=== PATIENT | female | born 1940 | race Caucasian/White ===

== ENCOUNTER → 2016-04-01 | Outpatient (CLI) | payer MEDICARE, OTHER ==
[~2016-04-01] MED LIST: ALPR0.254 PO; ATENPOW10 PO; LEXAPRO PO; OXYCODONE PO; PHEN50CH4 PO; PLAVIX PO; ROSU10TA16 PO; TRIATAB3 PO
== END | disposition home or self-care (01) ==
LOC: Rad HDHVI 09:54
PROVIDERS: ATTEND Internal Medicine Cardiovascular Disease
DX: G45.8 Other transient cerebral ischemic attacks and related syndromes (principal); Z98.61 Coronary angioplasty status
CPT/HCPCS: 93880

== ENCOUNTER → 2016-08-20 | Outpatient (CLI) | payer MEDICARE, OTHER | END | disposition home or self-care (01) | LOC: Rad HDHVI 07:55 | PROVIDERS: ATTEND Internal Medicine Cardiovascular Disease | DX: I07.1 Rheumatic tricuspid insufficiency (principal); I63.9 Cerebral infarction, unspecified | CPT/HCPCS: 93306 ==

== ENCOUNTER → 2016-08-31 | Outpatient (CLI) | payer MEDICARE, OTHER ==
[~2016-08-31] MED LIST changes: +ADENOSINE 61 MG in GIVE UN-DILUTED 0 ML IV ONE; +ADENOSINE 90 MG/30 ML INJ IV ONE
[2016-08-31 15:51] LABS: Basophils # (auto) 0 uL; Basophils % (auto) 0.5 % (0.0-2.0); CONDITION Y; Eosinophils # (auto) 0.1 uL; Eosinophils % (auto) 1.1 % (0.0-7.0); Hematocrit 47.9 % (36.0-46.0); Hemoglobin 16.2 g/dL (12.2-16.2); Lymphocytes # (auto) 2.3 uL; Lymphocytes % (auto) 21.5 % (10.0-50.0); Mean Corpuscular Hemoglobin 32.3 pg (28.0-32.0); Mean Corpuscular Hgb Conc. 33.9 g/dL (32.0-36.0); Mean Corpuscular Volume 95.4 fL (80.0-100.0); Mean Platelet Volume 8.7 fL (7.4-10.4); Monocytes # (auto) 0.9 uL; Monocytes % (auto) 8.4 % (0.0-12.0); Neutrophils # (auto) 7.3 uL; Neutrophils % (auto) 68.5 % (37.0-80.0); Platelet Count (auto) 311 10^3/uL (140-450); Red Cell Distribution Width 14.1 % (11.6-16.0); White Blood Cell 10.7 10^3/uL (4.4-10.8)
[2016-08-31 16:05] LABS: Albumin 3.7 g/dL (3.4-5.0); Alkaline Phosphatase 93 U/L (45-117); Anion Gap 10 (5-15); Aspartate Aminotransferase 31 U/L (15-37); BUN/Creatinine Ratio 20.2; Bilirubin, Direct < 0.1 mg/dL (0-0.2); Bilirubin, Total 0.3 mg/dL (0.2-1.0); Blood Urea Nitrogen 18 mg/dL (7-18); Calcium 9.2 mg/dL (8.5-10.1); Carbon Dioxide 26 mmol/L (21-32); Chloride 100 mmol/L (98-107); Cholesterol 205 mg/dL (< 200); GFR African American 79 mL/min; GFR Non-African American 65 mL/min; Glucose 127 mg/dL (74-106); HDL Cholesterol 37 mg/dL (40-59); Potassium 3.5 mmol/L (3.5-5.1); Sodium 136 mmol/L (136-145); Total Protein 8.1 g/dL (6.4-8.2); Triglycerides 459 mg/dL (< 150)
== END | disposition home or self-care (01) ==
LOC: Rad HDHVI 08:23
PROVIDERS: ATTEND Internal Medicine Cardiovascular Disease
DX: I10 Essential (primary) hypertension (principal); E78.00 Pure hypercholesterolemia, unspecified; I63.9 Cerebral infarction, unspecified; K74.1 Hepatic sclerosis; E11.9 Type 2 diabetes mellitus without complications; D64.9 Anemia, unspecified; E03.9 Hypothyroidism, unspecified; E78.5 Hyperlipidemia, unspecified; E55.9 Vitamin D deficiency, unspecified; N39.0 Urinary tract infection, site not specified
CPT/HCPCS: 36415; 78452; 80048; 80061; 80076; 82306; 83036; 84443; 85025; 93005; 96374; 96375; A9500; J0153

== ENCOUNTER → 2017-02-03 | Outpatient (CLI) | payer MEDICARE, OTHER ==
[~2017-02-03] MED LIST changes: -ADENOSINE 61 MG in GIVE UN-DILUTED 0 ML IV ONE; -ADENOSINE 90 MG/30 ML INJ IV ONE
== END | disposition home or self-care (01) ==
LOC: Rad HDHVI 10:21
PROVIDERS: ATTEND Internal Medicine Cardiovascular Disease
DX: I67.2 Cerebral atherosclerosis (principal); G31.9 Degenerative disease of nervous system, unspecified; G40.89 Other seizures; Z86.73 Personal history of transient ischemic attack (TIA), and cerebral infarction without residual deficits
CPT/HCPCS: 36415; 70450; 80185

== ENCOUNTER → 2017-02-10 | Outpatient (CLI) | payer MEDICARE, OTHER ==
[~2017-02-10] MED LIST changes: +ATEN-60 PO
== END | disposition home or self-care (01) ==
LOC: Rad HDHVI 11:15
PROVIDERS: ATTEND Internal Medicine Cardiovascular Disease
DX: I65.21 Occlusion and stenosis of right carotid artery (principal)
CPT/HCPCS: 93880

== ENCOUNTER → 2017-05-31 | Outpatient (CLI) | payer MEDICARE, OTHER ==
[~2017-05-31] VITALS: Ht 1 cm; Wt 0.5 kg
[~2017-05-31] MED LIST changes: +SODIUM CHLORIDE 0.9% 1,000 ML IV SCH; +SODIUM CHLORIDE 0.9% 500 ML IV SCH
[2017-05-31 12:57] LABS: Basophils # (auto) 0 uL; Basophils % (auto) 0.4 % (0.0-2.0); Eosinophils # (auto) 0.1 uL; Eosinophils % (auto) 0.8 % (0.0-7.0); Hematocrit 47.4 % (36.0-46.0); Hemoglobin 15.9 g/dL (12.2-16.2); Lymphocytes # (auto) 3.6 uL; Lymphocytes % (auto) 29.8 % (10.0-50.0); Mean Corpuscular Hemoglobin 31.7 pg (28.0-32.0); Mean Corpuscular Hgb Conc. 33.6 g/dL (32.0-36.0); Mean Corpuscular Volume 94.3 fL (80.0-100.0); Monocytes # (auto) 1.2 uL; Monocytes % (auto) 9.9 % (0.0-12.0); Neutrophils # (auto) 7.1 uL; Neutrophils % (auto) 59.1 % (37.0-80.0); Nucleated Red Blood Cells % 0.1 %; Platelet Count (auto) 290 10^3/uL (140-450); Red Blood Cells 5.03 10^6/uL (4.0-5.20); Red Cell Distribution Width 13.7 % (11.8-14.3)
[2017-05-31 13:00] LABS: BUN/Creatinine Ratio 18.6; Calcium 9.5 mg/dL (8.5-10.1); Potassium 3.5 mmol/L (3.5-5.1)
[2017-05-31 15:42] VITALS: BP 134/63
== END | disposition home or self-care (01) ==
LOC: Rad HDHVI 10:55
PROVIDERS: ATTEND Internal Medicine Cardiovascular Disease
DX: D64.9 Anemia, unspecified (principal); I10 Essential (primary) hypertension; N39.0 Urinary tract infection, site not specified; I63.511 Cerebral infarction due to unspecified occlusion or stenosis of right middle cerebral artery; G45.9 Transient cerebral ischemic attack, unspecified
CPT/HCPCS: 36415; 70450; 80048; 85025; 87086; 96360; 96361; G0463; J1642; J7030; 96374

== ENCOUNTER → 2017-08-18 | Outpatient (CLI) | payer MEDICARE, OTHER ==
[~2017-08-18] MED LIST changes: -ATENPOW10 PO; +ESCI20TA51 PO; +ROSU1TAB5 PO; -SODIUM CHLORIDE 0.9% 1,000 ML IV SCH; -SODIUM CHLORIDE 0.9% 500 ML IV SCH
[2017-08-18 12:26] LABS: Urine Amorphous Crystal MANY /hpf (None Seen); Urine Bacteria MANY /hpf (None Seen); Urine Blood 3+ /uL (Negative); Urine Specific Gravity 1.015 (1.001-1.035); Urine WBC 1068 /hpf (0 - 5); Urine WBC Clumps PRESENT /hpf (None Seen)
== END | disposition home or self-care (01) ==
LOC: LAB 07:51
PROVIDERS: ATTEND Internal Medicine Cardiovascular Disease
DX: N39.0 Urinary tract infection, site not specified (principal); I10 Essential (primary) hypertension; K21.9 Gastro-esophageal reflux disease without esophagitis
CPT/HCPCS: 81001; 87086

== ENCOUNTER → 2017-08-20 | Outpatient (CLI) | payer MEDICARE, BC ==
[2017-08-20 16:08] LABS: Urine Bacteria NONE SEEN /hpf (None Seen); Urine Blood 3+ /uL (Negative); Urine Mucus FEW (None Seen); Urine Specific Gravity 1.018 (1.001-1.035); Urine WBC 1429 /hpf (0 - 5); Urine WBC Clumps PRESENT /hpf (None Seen)
== END | disposition home or self-care (01) ==
LOC: LAB 13:01
PROVIDERS: ATTEND Internal Medicine Cardiovascular Disease
DX: N39.0 Urinary tract infection, site not specified (principal); I10 Essential (primary) hypertension; E78.5 Hyperlipidemia, unspecified; E03.9 Hypothyroidism, unspecified
CPT/HCPCS: 81001; 87086; 87088; 87186

== ENCOUNTER 2017-08-23 07:58 | Inpatient (IN) | payer MEDICARE, OTHER ==
[~2017-08-23] VITALS: Ht 162.6 cm; Wt 70.7 kg
[~2017-08-23 07:58] MED LIST changes: -ESCI20TA51 PO; -ROSU1TAB5 PO
[2017-08-23 09:45] LABS: Basophils # (auto) 0.1 uL; Basophils % (auto) 1.1 % (0.0-2.0); Eosinophils # (auto) 0.1 uL; Eosinophils % (auto) 1.2 % (0.0-7.0); Hematocrit 47.3 % (36.0-46.0); Hemoglobin 16.1 g/dL (12.2-16.2); Lymphocytes # (auto) 2.9 uL; Lymphocytes % (auto) 24.5 % (10.0-50.0); Mean Corpuscular Hemoglobin 31.4 pg (28.0-32.0); Mean Corpuscular Hgb Conc. 33.9 g/dL (32.0-36.0); Mean Corpuscular Volume 92.4 fL (80.0-100.0); Monocytes % (auto) 8.4 % (0.0-12.0); Neutrophils # (auto) 7.7 uL; Neutrophils % (auto) 64.8 % (37.0-80.0); Platelet Count (auto) 324 10^3/uL (140-450); Red Blood Cells 5.12 10^6/uL (4.0-5.20); White Blood Cell 11.9 10^3/uL (4.4-10.8)
[2017-08-23 09:57] LABS: INR 0.99 (0.9-1.15); Partial Thromboplastin Time 28.2 sec (23.78-33.04); Prothrombin Time 10.6 sec (9.27-12.13)
[2017-08-23 10:10] LABS: Alanine Aminotransferase 23 U/L (13-56); Albumin 3.5 g/dL (3.4-5.0); Alkaline Phosphatase 105 U/L (45-117); Anion Gap 10 (5-15); Aspartate Aminotransferase 35 U/L (15-37); BUN/Creatinine Ratio 17.3; Bilirubin, Total 0.3 mg/dL (0.2-1.0); Blood Urea Nitrogen 19 mg/dL (7-18); Carbon Dioxide 26 mmol/L (21-32); Chloride 100 mmol/L (98-107); GFR African American 62 mL/min; GFR Non-African American 51 mL/min; Glucose 114 mg/dL (74-106); Sodium 136 mmol/L (136-145)
[2017-08-23 10:12] LABS: Potassium 4.6 mmol/L (3.5-5.1)
[2017-08-23 10:18] LABS: Urine Bacteria NONE SEEN /hpf (None Seen); Urine Blood 3+ /uL (Negative); Urine Specific Gravity 1.019 (1.001-1.035); Urine WBC 2523 /hpf (0 - 5)
[2017-08-23] MEDS ORDERED: LEVOFLOXACIN 500MG 100 ML IV ONE (12:00)
[2017-08-23] MEDS ORDERED: MORPHINE SULF(PF) 0.5MG/ML 10ML VIAL IV PRN (13:45)
[2017-08-23] MEDS ORDERED: NITROGLYCERIN 0.4 MG SL TAB SL PRN (13:45)
[2017-08-23] MEDS: SOD CHL 0.45% 1,000 ML IV SCH (14:17)
[2017-08-23] MEDS ORDERED: ESCI20TA51 PO (18:42)
[2017-08-23] MEDS ORDERED: ROSU1TAB5 PO (18:42)
[2017-08-23 19:53] VITALS: BP 110/53
[2017-08-23] MEDS ORDERED: KETOROLAC TROMETH 30 MG/ML 1ML VIAL IV PRN (21:15)
[2017-08-23 21:40] VITALS: BP 110/53
[2017-08-23] MEDS: PHENYTOIN SODIUM 100 MG CAP PO SCH (22:06)
[2017-08-24 05:27] VITALS: BP 131/58
[2017-08-24 06:04] LABS: Albumin 3.3 g/dL (3.4-5.0); BUN/Creatinine Ratio 20.9; Bilirubin, Total 0.3 mg/dL (0.2-1.0); Calcium 9.3 mg/dL (8.5-10.1); Potassium 3.6 mmol/L (3.5-5.1); Total Protein 7.7 g/dL (6.4-8.2)
[2017-08-24] MEDS: CLOPIDOGREL BISULFATE 75 MG TAB PO SCH (09:22)
[2017-08-24] MEDS: TRIAMTERENE/HCTZ 37.5/25 MG CAP PO SCH (09:22)
[2017-08-24] MEDS: ALPRAZolam 0.25 MG TAB PO SCH (09:22)
[2017-08-24] MEDS: PHENYTOIN SODIUM 100 MG CAP PO SCH (09:22)
[2017-08-24] MEDS: ATENOLOL 25 MG TAB PO SCH (09:22)
[2017-08-24] MEDS: CRESTOR 10MG TABLET PO SCH (09:23)
[2017-08-24] MEDS: SOD CHL 0.45% 1,000 ML IV SCH (09:23)
[2017-08-24] MEDS: ESCITALOPRAM 20MG TABLET PO SCH (09:23)
[2017-08-24] MEDS: LEVOFLOXACIN 500MG 100 ML IV SCH (09:25)
[2017-08-24 09:39] VITALS: BP 118/77
[2017-08-24 13:08] VITALS: BP 137/68
[2017-08-24 17:11] VITALS: BP 106/64
[2017-08-24 21:13] VITALS: BP 122/61
[2017-08-25 05:24] VITALS: BP 131/42
[2017-08-25] MEDS: SOD CHL 0.45% 1,000 ML IV SCH (05:58)
[2017-08-25 06:04] LABS: Basophils # (auto) 0 uL; Basophils % (auto) 0.2 % (0.0-2.0); Eosinophils # (auto) 0.1 uL; Eosinophils % (auto) 0.6 % (0.0-7.0); Hematocrit 46.8 % (36.0-46.0); Hemoglobin 16.1 g/dL (12.2-16.2); Lymphocytes % (auto) 25.5 % (10.0-50.0); Mean Corpuscular Hemoglobin 32.2 pg (28.0-32.0); Mean Corpuscular Hgb Conc. 34.4 g/dL (32.0-36.0); Mean Corpuscular Volume 93.5 fL (80.0-100.0); Monocytes # (auto) 1.3 uL; Monocytes % (auto) 11.5 % (0.0-12.0); Neutrophils # (auto) 7.3 uL; Neutrophils % (auto) 62.2 % (37.0-80.0); Nucleated Red Blood Cells % 0.2 %; Platelet Count (auto) 298 10^3/uL (140-450); Red Blood Cells 5.01 10^6/uL (4.0-5.20); Red Cell Distribution Width 14.1 % (11.8-14.3); White Blood Cell 11.8 10^3/uL (4.4-10.8)
[2017-08-25 06:19] LABS: Potassium 4.1 mmol/L (3.5-5.1)
[2017-08-25 06:30] LABS: Albumin 3.3 g/dL (3.4-5.0); BUN/Creatinine Ratio 16.2; Bilirubin, Total 0.4 mg/dL (0.2-1.0); Calcium 9.1 mg/dL (8.5-10.1); Total Protein 8.2 g/dL (6.4-8.2)
[2017-08-25 08:25] VITALS: BP 110/58
[2017-08-25] MEDS: TRIAMTERENE/HCTZ 37.5/25 MG CAP PO SCH (09:30)
[2017-08-25] MEDS: ATENOLOL 25 MG TAB PO SCH (09:31)
[2017-08-25] MEDS: ESCITALOPRAM 20MG TABLET PO SCH (10:00)
[2017-08-25] MEDS: CRESTOR 10MG TABLET PO SCH (10:00)
[2017-08-25] MEDS: LEVOFLOXACIN 500MG 100 ML IV SCH (10:31)
[2017-08-25] MEDS: CLOPIDOGREL BISULFATE 75 MG TAB PO SCH (10:32)
[2017-08-25] MEDS: ALPRAZolam 0.25 MG TAB PO SCH (10:32)
[2017-08-25] MEDS: PHENYTOIN SODIUM 100 MG CAP PO SCH (10:32)
[2017-08-25] MEDS: KETOROLAC TROMETH 30 MG/ML 1ML VIAL IV PRN ×2 (11:31→21:36)
[2017-08-25 12:41] VITALS: BP 117/59
[2017-08-25 17:03] VITALS: BP 107/46
[2017-08-25 21:47] VITALS: BP 96/58
[2017-08-26] MEDS: SOD CHL 0.45% 1,000 ML IV SCH ×2 (02:38→22:30)
[2017-08-26 05:02] VITALS: BP 153/67
[2017-08-26 05:42] LABS: Basophils # (auto) 0 uL; Basophils % (auto) 0.4 % (0.0-2.0); Eosinophils # (auto) 0.2 uL; Eosinophils % (auto) 1.6 % (0.0-7.0); Hematocrit 43.1 % (36.0-46.0); Hemoglobin 14.9 g/dL (12.2-16.2); Lymphocytes # (auto) 3.2 uL; Lymphocytes % (auto) 31.3 % (10.0-50.0); Mean Corpuscular Hemoglobin 32.6 pg (28.0-32.0); Mean Corpuscular Hgb Conc. 34.7 g/dL (32.0-36.0); Monocytes % (auto) 9.6 % (0.0-12.0); Neutrophils # (auto) 5.8 uL; Neutrophils % (auto) 57.1 % (37.0-80.0); Platelet Count (auto) 260 10^3/uL (140-450); Red Blood Cells 4.58 10^6/uL (4.0-5.20); Red Cell Distribution Width 14.1 % (11.8-14.3); White Blood Cell 10.1 10^3/uL (4.4-10.8)
[2017-08-26] MEDS: KETOROLAC TROMETH 30 MG/ML 1ML VIAL IV PRN (06:03)
[2017-08-26 06:12] LABS: Chloride 106 mmol/L (98-107); Potassium 3.5 mmol/L (3.5-5.1); Sodium 141 mmol/L (136-145)
[2017-08-26 06:21] LABS: Alanine Aminotransferase 22 U/L (13-56); Alkaline Phosphatase 84 U/L (45-117); Anion Gap 13 (5-15); Aspartate Aminotransferase 25 U/L (15-37); BUN/Creatinine Ratio 28.4; Bilirubin, Total 0.3 mg/dL (0.2-1.0); Blood Urea Nitrogen 27 mg/dL (7-18); Calcium 8.8 mg/dL (8.5-10.1); Carbon Dioxide 22 mmol/L (21-32); GFR African American 73 mL/min; GFR Non-African American 60 mL/min; Glucose 106 mg/dL (74-106); Total Protein 7.4 g/dL (6.4-8.2)
[2017-08-26 09:00] VITALS: BP 118/66
[2017-08-26] MEDS: ATENOLOL 25 MG TAB PO SCH (10:00)
[2017-08-26] MEDS: CRESTOR 10MG TABLET PO SCH ×2 (10:02→13:36)
[2017-08-26] MEDS: LEVOFLOXACIN 500MG 100 ML IV SCH (10:02)
[2017-08-26] MEDS: CLOPIDOGREL BISULFATE 75 MG TAB PO SCH (10:03)
[2017-08-26] MEDS: TRIAMTERENE/HCTZ 37.5/25 MG CAP PO SCH (10:03)
[2017-08-26] MEDS: ESCITALOPRAM 20MG TABLET PO SCH ×2 (10:03→13:36)
[2017-08-26] MEDS: PHENYTOIN SODIUM 100 MG CAP PO SCH (10:03)
[2017-08-26] MEDS: ALPRAZolam 0.25 MG TAB PO SCH (10:04)
[2017-08-26 13:00] VITALS: BP 103/49
[2017-08-26 17:00] VITALS: BP 106/50
[2017-08-26 20:00] VITALS: BP 120/57
[2017-08-26 22:00] VITALS: BP 120/57
[2017-08-27 05:00] VITALS: BP 152/94
[2017-08-27 07:47] VITALS: BP 123/63
[2017-08-27 08:00] VITALS: BP 123/63
[2017-08-27] MEDS: LEVOFLOXACIN 500MG 100 ML IV SCH (10:04)
[2017-08-27] MEDS: TRIAMTERENE/HCTZ 37.5/25 MG CAP PO SCH (10:05)
[2017-08-27] MEDS: CLOPIDOGREL BISULFATE 75 MG TAB PO SCH (10:05)
[2017-08-27] MEDS: ATENOLOL 25 MG TAB PO SCH (10:05)
[2017-08-27] MEDS: PHENYTOIN SODIUM 100 MG CAP PO SCH (10:05)
[2017-08-27] MEDS: ESCITALOPRAM 20MG TABLET PO SCH (10:06)
[2017-08-27] MEDS: CRESTOR 10MG TABLET PO SCH (10:06)
[2017-08-27] MEDS ORDERED: ALPRAZolam 0.25 MG TAB PO SCH (10:30)
[2017-08-27 12:00] VITALS: BP 119/57
[2017-08-27 15:15] VITALS: BP 119/57
[2017-08-27 16:30] VITALS: BP 122/56
[2017-08-27] MEDS: SOD CHL 0.45% 1,000 ML IV SCH (18:30)
[2017-08-27] MEDS: KETOROLAC TROMETH 30 MG/ML 1ML VIAL IV PRN (20:01)
== END 2017-08-27 21:30 | DRG 871 ==
LOC: ER 07:58 → TELE 07:59 → TELE-CENTR 19:53
PROVIDERS: ADMIT Internal Medicine; ATTEND Internal Medicine
DX: A41.9 Sepsis, unspecified organism (principal); G93.41 Metabolic encephalopathy; N39.0 Urinary tract infection, site not specified; I69.354 Hemiplegia and hemiparesis following cerebral infarction affecting left non-dominant side; I10 Essential (primary) hypertension; E78.5 Hyperlipidemia, unspecified; E86.0 Dehydration; G40.909 Epilepsy, unspecified, not intractable, without status epilepticus; Z90.710 Acquired absence of both cervix and uterus; Z88.0 Allergy status to penicillin; Z86.73 Personal history of transient ischemic attack (TIA), and cerebral infarction without residual deficits
CPT/HCPCS: 36415; 51702; 70450; 71045; 80053; 81001; 82962; 84484; 85025; 85610; 85730; 87086; 87088; 87186; 93005; 96361; 96365; 97163; J1885; J1956

== ENCOUNTER → 2017-12-09 | Outpatient (CLI) | payer MEDICARE, OTHER ==
[~2017-12-09] MED LIST changes: +ESCI20TA51 PO; -LEXAPRO PO; -OXYCODONE PO; -ROSU10TA16 PO; +ROSU1TAB9 PO
[2017-12-09 16:43] LABS: Urine Blood TRACE /uL (Negative); Urine Specific Gravity 1.016 (1.001-1.035)
== END | disposition home or self-care (01) ==
LOC: LAB 13:07
PROVIDERS: ATTEND Internal Medicine Cardiovascular Disease
DX: N39.0 Urinary tract infection, site not specified (principal)
CPT/HCPCS: 81003; 87086

== ENCOUNTER → 2017-12-20 | Outpatient (CLI) | payer MEDICARE, BC ==
[~2017-12-20] VITALS: Ht 162.6 cm; Wt 63.5 kg
[~2017-12-20] MED LIST changes: +ADENOSINE 53 MG in GIVE UN-DILUTED 0 ML IV ONE; +ADENOSINE 90 MG/30 ML INJ IV ONE
== END | disposition home or self-care (01) ==
LOC: Rad HDHVI 13:45
PROVIDERS: ATTEND Internal Medicine Cardiovascular Disease
DX: I63.9 Cerebral infarction, unspecified (principal); N12 Tubulo-interstitial nephritis, not specified as acute or chronic; E78.00 Pure hypercholesterolemia, unspecified
CPT/HCPCS: 78452; 93005; 96374; 96375; A9500; J0153

== ENCOUNTER 2018-01-23 10:26 | Emergency (ER) | payer MEDICARE, OTHER ==
[~2018-01-23] VITALS: Ht 154.9 cm; Wt 59.0 kg
[~2018-01-23 10:26] MED LIST changes: -ADENOSINE 53 MG in GIVE UN-DILUTED 0 ML IV ONE; -ADENOSINE 90 MG/30 ML INJ IV ONE
[2018-01-23] MEDS ORDERED: SODIUM CHLORIDE 0.9% 1,000 ML IV ONE (11:41)
[2018-01-23 11:45] LABS: Basophils # (auto) 0.1 uL; Basophils % (auto) 0.4 % (0.0-2.0); Eosinophils # (auto) 0.1 uL; Eosinophils % (auto) 0.4 % (0.0-7.0); Hematocrit 47.5 % (36.0-46.0); Lymphocytes # (auto) 1.3 uL; Lymphocytes % (auto) 10.1 % (10.0-50.0); Mean Corpuscular Hemoglobin 31.6 pg (28.0-32.0); Mean Corpuscular Hgb Conc. 33.6 g/dL (32.0-36.0); Monocytes # (auto) 1.3 uL; Monocytes % (auto) 10.4 % (0.0-12.0); Neutrophils # (auto) 10.1 uL; Neutrophils % (auto) 78.7 % (37.0-80.0); Platelet Count (auto) 253 10^3/uL (140-450); Red Blood Cells 5.05 10^6/uL (4.0-5.20); Red Cell Distribution Width 14.4 % (11.8-14.3); White Blood Cell 12.8 10^3/uL (4.4-10.8)
[2018-01-23] MEDS ORDERED: MORPHINE SULFATE 4 MG/ML SYR/VIAL IV ONE (11:45)
[2018-01-23] MEDS ORDERED: PROMETHAZINE HCL 25 MG/ML 1ML IV PRN (11:45)
[2018-01-23 12:17] LABS: Anion Gap 10 (5-15); Blood Urea Nitrogen 21 mg/dL (7-18); Carbon Dioxide 26 mmol/L (21-32); Chloride 103 mmol/L (98-107); Glucose 130 mg/dL (74-106); Potassium 3.2 mmol/L (3.5-5.1); Sodium 139 mmol/L (136-145)
[2018-01-23 12:18] LABS: Alanine Aminotransferase 20 U/L (13-56); Albumin 3.3 g/dL (3.4-5.0); Alkaline Phosphatase 97 U/L (45-117); Aspartate Aminotransferase 20 U/L (15-37); BUN/Creatinine Ratio 21.9; Bilirubin, Total 0.2 mg/dL (0.2-1.0); GFR African American 72 mL/min; GFR Non-African American 59 mL/min; Total Protein 8.2 g/dL (6.4-8.2)
[2018-01-23 17:12] VITALS: BP 132/69
[2018-01-23 18:08] LABS: Urine Bacteria NONE SEEN /hpf (None Seen); Urine Blood 2+ /uL (Negative); Urine Hyaline Cast FEW /lpf (0 - 2); Urine Mucus FEW (None Seen); Urine Specific Gravity 1.022 (1.001-1.035); Urine WBC 4 /hpf (0 - 5)
[2018-01-23] MEDS ORDERED: POTASSIUM EFFERVESENT TAB 25 MEQ PO ONE (18:30)
== END 2018-01-23 18:55 | disposition home or self-care (01) ==
LOC: EDBD 10:26 → ER 10:28
DX: K52.9 Noninfective gastroenteritis and colitis, unspecified (principal); K90.49 Malabsorption due to intolerance, not elsewhere classified; E87.6 Hypokalemia; G81.94 Hemiplegia, unspecified affecting left nondominant side; Z88.0 Allergy status to penicillin; Z79.02 Long term (current) use of antithrombotics/antiplatelets; Z79.899 Other long term (current) drug therapy; Z86.73 Personal history of transient ischemic attack (TIA), and cerebral infarction without residual deficits; Z90.49 Acquired absence of other specified parts of digestive tract; Z90.710 Acquired absence of both cervix and uterus
CPT/HCPCS: 36415; 71045; 74176; 80053; 80185; 81001; 83690; 83735; 85025; 93005; 94761; 96361; 96374; 96375; 99285; J2270; J2550; J7030

== ENCOUNTER → 2018-09-30 | Outpatient (CLI) | payer MEDICARE, BC ==
[~2018-09-30] MED LIST changes: +ROSU1TAB13 PO; -ROSU1TAB9 PO
[2018-09-30 12:26] LABS: Basophils # (auto) 0.1 uL; Basophils % (auto) 0.6 % (0.0-2.0); Eosinophils # (auto) 0.1 uL; Eosinophils % (auto) 1.1 % (0.0-7.0); Hematocrit 47.4 % (36.0-46.0); Hemoglobin 16.1 g/dL (12.2-16.2); Lymphocytes # (auto) 2.6 uL; Lymphocytes % (auto) 26.4 % (10.0-50.0); Mean Corpuscular Hemoglobin 32.7 pg (28.0-32.0); Mean Corpuscular Volume 96.2 fL (80.0-100.0); Monocytes # (auto) 0.8 uL; Monocytes % (auto) 8.1 % (0.0-12.0); Neutrophils # (auto) 6.2 uL; Neutrophils % (auto) 63.8 % (37.0-80.0); Nucleated Red Blood Cells % 0.2 %; Platelet Count (auto) 269 10^3/uL (140-450); Red Blood Cells 4.93 10^6/uL (4.0-5.20); Red Cell Distribution Width 14.3 % (11.8-14.3); White Blood Cell 9.8 10^3/uL (4.4-10.8)
[2018-09-30 12:40] LABS: Chloride 102 mmol/L (98-107); Potassium 3.5 mmol/L (3.5-5.1); Sodium 140 mmol/L (136-145)
[2018-09-30 12:58] LABS: Alanine Aminotransferase 26 U/L (13-56); Albumin 3.5 g/dL (3.4-5.0); Alkaline Phosphatase 97 U/L (45-117); Anion Gap 10 (5-15); Aspartate Aminotransferase 15 U/L (15-37); BUN/Creatinine Ratio 15.1; Bilirubin, Total 0.2 mg/dL (0.2-1.0); Blood Urea Nitrogen 16 mg/dL (7-18); Carbon Dioxide 28 mmol/L (21-32); Cholesterol 202 mg/dL (< 200); GFR African American 64 mL/min; GFR Non-African American 53 mL/min; Glucose 147 mg/dL (74-106); HDL Cholesterol 37 mg/dL (40-59); Total Protein 8.2 g/dL (6.4-8.2); Triglycerides 649 mg/dL (< 150)
[2018-09-30 13:26] LABS: Free T4 (Free Thyroxine) 0.89 ng/dL (0.89-1.76)
== END | disposition home or self-care (01) ==
LOC: LAB 08:57
PROVIDERS: ATTEND Internal Medicine Cardiovascular Disease
DX: E03.9 Hypothyroidism, unspecified (principal); D51.9 Vitamin B12 deficiency anemia, unspecified; K90.9 Intestinal malabsorption, unspecified; Z79.899 Other long term (current) drug therapy
CPT/HCPCS: 36415; 80053; 80061; 82306; 82607; 83036; 84439; 84443; 85025

== ENCOUNTER → 2018-10-04 | Outpatient (CLI) | payer MEDICARE, BC ==
[2018-10-04 12:02] LABS: Urine Blood 1+ /uL (Negative); Urine Specific Gravity 1.017 (1.001-1.035)
== END | disposition home or self-care (01) ==
LOC: LAB 09:05
PROVIDERS: ATTEND Internal Medicine Cardiovascular Disease
DX: N39.0 Urinary tract infection, site not specified (principal)
CPT/HCPCS: 81003; 87086

== ENCOUNTER → 2019-01-30 | Outpatient (CLI) | payer MEDICARE, BC ==
[2019-01-31 12:02] LABS: Urine Blood TRACE /uL (Negative); Urine Specific Gravity 1.017 (1.001-1.035)
== END | disposition home or self-care (01) ==
LOC: LAB 15:32
PROVIDERS: ATTEND Internal Medicine Cardiovascular Disease
DX: N39.0 Urinary tract infection, site not specified (principal)
CPT/HCPCS: 81003

== ENCOUNTER → 2019-02-06 | Outpatient (CLI) | payer MEDICARE, BC ==
[~2019-02-06] VITALS: Ht 162.6 cm; Wt 66.7 kg
[~2019-02-06] MED LIST changes: +GENTAMICIN SULF 80 MG/2 ML VIAL ONE; +GENTAMICIN SULFATE 240 MG in D5W 5% 100 ML IV ONE; +PHE100C PO
[2019-02-06 15:45] VITALS: BP 131/58
--- NOTE | 2019-02-06 15:45 | NUR ---
CHF PT ARRIVED AT THE CHF CLINIC FROM THE BACK OFFICE FOR TX AND EVAL. ANTIBIOTICS ORDERED VSS
--- NOTE | 2019-02-06 16:10 | NUR ---
IV insertion IV access obtained, via clean sterile technique by inserting 22 gauge catheter at after attempt(s). IV secured properly. No trauma to site. Patient tolerated procedure well.
[2019-02-06 16:29] LABS: Urine Blood 1+ /uL (Negative); Urine Specific Gravity 1.011 (1.001-1.035)
--- NOTE | 2019-02-06 17:05 | NUR ---
Discharge Instructions See e-MAR for any mediations given with this visit. Patient education given on disease process. Patient verbalized understanding. Previous labs reviewed. Patient discharged in stable condition with after care instructions and follow up appointment. MEDICATIONS GENTAMYCIN IV [phone]
--- NOTE | 2019-02-06 17:19 | NUR ---
IV removal IV DC'd with sterile technique, catheter fully intact. Pressure dressing applied to site. Patient tolerated procedure well. Discharged with aftercare instructions per MD. NOTE:
[2019-02-06 17:22] VITALS: BP 129/54
== END | disposition home or self-care (01) ==
LOC: LAB 15:20
PROVIDERS: ATTEND Internal Medicine Cardiovascular Disease
DX: R78.81 Bacteremia (principal); N39.0 Urinary tract infection, site not specified; G40.89 Other seizures
CPT/HCPCS: 36415; 80185; 81003; 87086; 96365; G0463; J1580; J7060

== ENCOUNTER → 2019-02-27 | Outpatient (CLI) | payer MEDICARE, BC ==
[~2019-02-27] MED LIST changes: -GENTAMICIN SULF 80 MG/2 ML VIAL ONE; -GENTAMICIN SULFATE 240 MG in D5W 5% 100 ML IV ONE; -PHE100C PO
[2019-02-27 15:58] LABS: Urine Blood 1+ /uL (Negative); Urine Specific Gravity 1.018 (1.001-1.035)
== END | disposition home or self-care (01) ==
LOC: LAB 13:39
PROVIDERS: ATTEND Internal Medicine Cardiovascular Disease
DX: N39.0 Urinary tract infection, site not specified (principal)
CPT/HCPCS: 81003; 87086; 87088; 87186

== ENCOUNTER 2019-03-13 09:43 | Inpatient (IN) | payer MEDICARE, BC ==
[~2019-03-13] VITALS: Ht 167.6 cm; Wt 68.0 kg
[2019-03-13] MEDS ORDERED: SODIUM CHLORIDE 0.9% 1,000 ML IV ONE ×2 (10:06)
[2019-03-13 10:18] LABS: Basophils # (auto) 0.1 uL; Basophils % (auto) 0.9 % (0.0-2.0); Eosinophils # (auto) 0.1 uL; Eosinophils % (auto) 1.1 % (0.0-7.0); Hematocrit 41.2 % (36.0-46.0); Hemoglobin 14.3 g/dL (12.2-16.2); Lymphocytes % (auto) 21.5 % (10.0-50.0); Mean Corpuscular Hemoglobin 32.9 pg (28.0-32.0); Mean Corpuscular Hgb Conc. 34.8 g/dL (32.0-36.0); Mean Corpuscular Volume 94.6 fL (80.0-100.0); Monocytes # (auto) 0.8 uL; Monocytes % (auto) 8.4 % (0.0-12.0); Neutrophils # (auto) 6.4 uL; Neutrophils % (auto) 68.1 % (37.0-80.0); Platelet Count (auto) 256 10^3/uL (140-450); Red Blood Cells 4.35 10^6/uL (4.0-5.20); Red Cell Distribution Width 14.2 % (11.8-14.3); White Blood Cell 9.3 10^3/uL (4.4-10.8)
[2019-03-13 10:37] LABS: INR 1.02 (0.9-1.15); Partial Thromboplastin Time 24.5 sec (23.64-32.05)
[2019-03-13 10:38] LABS: Albumin 3.2 g/dL (3.4-5.0); Anion Gap 7 (5-15); Blood Urea Nitrogen 17 mg/dL (7-18); Calcium 8.8 mg/dL (8.5-10.1); Carbon Dioxide 29 mmol/L (21-32); Chloride 103 mmol/L (98-107); Glucose 132 mg/dL (74-106); Potassium 3.5 mmol/L (3.5-5.1); Sodium 139 mmol/L (136-145)
[2019-03-13 10:41] LABS: Urine Bacteria MANY /hpf (None Seen); Urine Blood 1+ /uL (Negative); Urine Hyaline Cast FEW /lpf (0 - 2); Urine Mucus FEW (None Seen); Urine Specific Gravity 1.017 (1.001-1.035); Urine WBC 110 /hpf (0 - 5)
[2019-03-13 10:46] LABS: Alanine Aminotransferase 19 U/L (13-56); Alkaline Phosphatase 92 U/L (45-117); Aspartate Aminotransferase 16 U/L (15-37); Bilirubin, Total 0.2 mg/dL (0.2-1.0); GFR African American 59 mL/min; GFR Non-African American 49 mL/min; Total Protein 7.6 g/dL (6.4-8.2)
[2019-03-13] MEDS ORDERED: ERTAPENEM SOD 1 GM INJ VIAL IM ONE (11:00)
[2019-03-13] MEDS ORDERED: ERTAPENEM SOD INJ 1 GM in SODIUM CHL 0.9% 50 ML IV ONE (11:30)
[2019-03-13] MEDS ORDERED: SODIUM CHLORIDE 0.9% 1,000 ML IV SCH (11:49)
[2019-03-13] MEDS ORDERED: ONDANSETRON HCL 4 MG/2 ML VIAL IV PRN (12:00)
[2019-03-13] MEDS ORDERED: NITROGLYCERIN 0.4 MG SL TAB SL PRN (12:00)
[2019-03-13] MEDS ORDERED: ACETAMINOPHEN 500 MG TAB PO PRN (12:00)
[2019-03-13] MEDS ORDERED: MORPHINE SULF INJ 2 MG/ML SYRINGE 1ML IV PRN ×2 (12:00)
[2019-03-13] MEDS ORDERED: FAMOTIDINE 20 MG TAB PO ONE (12:15)
[2019-03-13] MEDS ORDERED: ATENOLOL 25 MG TAB PO ONE (12:15)
[2019-03-13] MEDS: HYDROcodone-ACET 5/325MG TAB PO PRN ×2 (12:35→21:15)
--- NOTE | 2019-03-13 16:21 | NUR ---
PT ARRIVED ON UNIT PT ARRIVED ON UNIT. PT ARRIVED VIA GURNEY FROM ED. PT IS A/OX3-4; SLIGHT CONFUSION REGARDING WHERE SHE IS AND THE SITUATION. SHE IS ORIENTED TO NAME AND TIME WELL THE FACT THAT SHE IN IN THE HOSPITAL. SAFETY MEASURES MAINTAINED WITH CALL LIGHT WITHIN REACH, BED IN LOWEST POSITION AND SIDE RAILS UP. GARCIA CATHETER IS PRESENT; PATENT, FREE OF KINKS AND DRAINING TO GRAVITY. WILL CONTINUE TO MONITOR FOR CHANGES Q1HR AND PRN.
[2019-03-13] MEDS: SODIUM CHLORIDE 0.9% 1,000 ML IV SCH (17:00)
[2019-03-13 17:15] VITALS: BP 126/65
--- NOTE | 2019-03-13 17:39 | NUR ---
[facility]SA NARES SENT TO LAB
--- NOTE | 2019-03-13 19:35 | NUR ---
Opening Shift Note Assumed care of patient, awake and alert times 3. No S/S of distress/SOB or pain. Instructed on POC and to call for assist PRN, will continue to monitor for changes Q1hr and PRN. bed in low position and call light within reach. bed alarm on
[2019-03-13] MEDS: ATENOLOL 25 MG TAB PO SCH (21:14)
[2019-03-13 22:00] VITALS: BP 145/47
[2019-03-13] MEDS ORDERED: PHENYTOIN SODIUM 100 MG PO SCH (22:00)
[2019-03-14] MEDS: SODIUM CHLORIDE 0.9% 1,000 ML IV SCH ×4 (01:00→17:00)
--- NOTE | 2019-03-14 02:38 | NUR ---
IV insertion GROUP THERAPY COUNSELOR informed me patient removed iv. assess patient no trauma to site, catheter fully intact. iv discontinued. pressure dressing applied to site. patient tolerated well. IV access obtained, via clean sterile technique by inserting 20 gauge catheter at right forearm after 2 attempts. IV secured properly. No trauma to site. Patient tolerated well.
[2019-03-14 05:09] VITALS: BP 136/53
--- NOTE | 2019-03-14 07:05 | NUR ---
REPORT GIVEN TO DAYSHIFT RN. PATIENT DENIES SOB.DISTRESS OR PAIN. BED ALARM ON
[2019-03-14 07:17] LABS: Basophils # (auto) 0.1 uL; Basophils % (auto) 0.5 % (0.0-2.0); Eosinophils # (auto) 0.1 uL; Eosinophils % (auto) 1.4 % (0.0-7.0); Hematocrit 43.7 % (36.0-46.0); Hemoglobin 15.1 g/dL (12.2-16.2); Lymphocytes # (auto) 2.3 uL; Lymphocytes % (auto) 22.4 % (10.0-50.0); Mean Corpuscular Hemoglobin 32.3 pg (28.0-32.0); Mean Corpuscular Hgb Conc. 34.5 g/dL (32.0-36.0); Mean Corpuscular Volume 93.5 fL (80.0-100.0); Monocytes % (auto) 9.6 % (0.0-12.0); Neutrophils # (auto) 6.9 uL; Neutrophils % (auto) 66.1 % (37.0-80.0); Nucleated Red Blood Cells % 0.1 %; Platelet Count (auto) 243 10^3/uL (140-450); Red Blood Cells 4.67 10^6/uL (4.0-5.20); Red Cell Distribution Width 13.9 % (11.8-14.3); White Blood Cell 10.4 10^3/uL (4.4-10.8)
--- NOTE | 2019-03-14 07:20 | NUR ---
Opening Shift Note Assumed care of patient, awake and alert X2, patient is confused at this time, reoriented to time and place. No S/S of distress or SOB, no pain noted or reported at this time. Updated on POC and instructed to call for assistance as needed, patient verbalized understanding but needs reinforcement. Bed locked in lowest position, side rails up x2, call light within reach, bed alarm on for safety. Will continue to monitor for changes Q1hr and PRN.
[2019-03-14 07:33] LABS: BUN/Creatinine Ratio 12.6; Calcium 8.5 mg/dL (8.5-10.1); Potassium 3.6 mmol/L (3.5-5.1)
[2019-03-14 09:00] VITALS: BP 141/99
[2019-03-14] MEDS ORDERED: ERTAPENEM SOD INJ 1 GM in SODIUM CHL 0.9% 50 ML IV SCH ×4 (10:00)
[2019-03-14] MEDS: LEXAPRO 20 MG PO SCH (10:53)
[2019-03-14] MEDS: FAMOTIDINE 20 MG TAB PO SCH (10:54)
[2019-03-14] MEDS: CLOPIDOGREL BISULFATE 75 MG TAB PO SCH (10:54)
[2019-03-14] MEDS: ATENOLOL 25 MG TAB PO SCH ×2 (10:55→21:36)
[2019-03-14 13:00] VITALS: BP 181/71
[2019-03-14 13:15] VITALS: BP 151/77
--- NOTE | 2019-03-14 13:26 | NUR ---
Spoke with Pharmacy and Dr. Mosley Regarding orders for Invanz antibiotic and patients having allergy to penicillin. Per Dr. Mosley and pharmacist patient is okay to continue medication as ordered, medication hold will be lifted.
[2019-03-14] MEDS: ERTAPENEM SOD INJ 1 GM in SODIUM CHL 0.9% 50 ML IV SCH (14:04)
--- NOTE | 2019-03-14 14:50 | NUR ---
PATIENT BECOMING MORE CONFUSED/ AGITATED PATIENT ATTEMPTING TO GET OUT OF BED MULTIPLE TIMES, STATING SHE WANTS TO GO HOME. AT BEDSIDE STATING NO THE PATIENT NEEDS TO STAY. PATIENT IS ONLY ALERT TO SELF. REORIENTED TO TIME AND PLACE AND REASON FOR HOSPITALIZATION, PATIENT CONTINUES TO ATTEMPT TO GET OUT OF BED AND PULLING ON CATHETER AND IV POLE. NOTIFIED PUPPY TRAINER, MICHAEL, FOR THE NEED OF A SITTER. PATIENT BEING TRANSFERRED TO [facility] FOR SITTER TO BE AT BEDSIDE FOR SAFETY.
--- NOTE | 2019-03-14 15:45 | NUR ---
PATIENT REFUSING IV FLUIDS AT THIS TIME.
[2019-03-14] MEDS: TRIAMTERENE/HCTZ 37.5/25 MG CAP/TAB PO SCH (16:22)
[2019-03-14 17:00] VITALS: BP 152/67
--- NOTE | 2019-03-14 17:30 | NUR ---
Patient asking to be hooked up to fluids Patient reconnected to fluids at this time per MD orders.
[2019-03-14] MEDS ORDERED: PHE100C PO (18:31)
--- NOTE | 2019-03-14 18:35 | NUR ---
Spoke with Dr Mosley states that patient takes 300mg of Dilantin at bedtime for seizures. Orders only for 100mg. Received orders to adjust dose accordingly. Will follow through with orders.
[2019-03-14] MEDS: ATORVASTATIN 20 MG TAB PO SCH (21:35)
[2019-03-14] MEDS: PHENYTOIN SODIUM 100 MG CAP PO SCH (21:35)
[2019-03-14 22:00] VITALS: BP 129/62
[2019-03-15] MEDS: SODIUM CHLORIDE 0.9% 1,000 ML IV SCH ×3 (01:40→17:00)
[2019-03-15 05:00] VITALS: BP 133/52
--- NOTE | 2019-03-15 07:25 | NUR ---
Opening Shift Note Assumed care of patient, awake and alert X2, patient is confused at this time, reoriented to time and place. No S/S of distress or SOB, no pain noted or reported at this time. Updated on POC and instructed to call for assistance as needed, patient verbalized understanding but needs reinforcement. Bed locked in lowest position, side rails up x2, call light within reach, bed alarm on and sitter at bedside for safety. Will continue to monitor for changes Q1hr and PRN.
[2019-03-15 09:45] VITALS: BP 139/82
[2019-03-15] MEDS: LEXAPRO 20 MG PO SCH (11:02)
[2019-03-15] MEDS: TRIAMTERENE/HCTZ 37.5/25 MG CAP/TAB PO SCH (11:06)
[2019-03-15] MEDS: ATENOLOL 25 MG TAB PO SCH ×2 (11:06→21:54)
[2019-03-15] MEDS: FAMOTIDINE 20 MG TAB PO SCH (11:06)
[2019-03-15] MEDS: CLOPIDOGREL BISULFATE 75 MG TAB PO SCH (11:06)
[2019-03-15] MEDS: ERTAPENEM SOD INJ 1 GM in SODIUM CHL 0.9% 50 ML IV SCH (11:07)
[2019-03-15 13:00] VITALS: BP 122/58
[2019-03-15 16:35] VITALS: BP 124/69
--- NOTE | 2019-03-15 19:30 | NUR ---
Opening Shift Note Assumed care of patient, oriented x2. No S/S of distress/SOB or pain. Instructed on POC and to call for assist PRN, patient verbalized understanding, call light within reach, sitter at bedside, will continue to monitor for changes Q1hr and PRN.
[2019-03-15] MEDS: ATORVASTATIN 20 MG TAB PO SCH (21:46)
[2019-03-15] MEDS: PHENYTOIN SODIUM 100 MG CAP PO SCH (21:46)
[2019-03-16] MEDS: SODIUM CHLORIDE 0.9% 1,000 ML IV SCH ×3 (05:06→17:00)
[2019-03-16 05:18] VITALS: BP 109/59
[2019-03-16] MEDS: HYDROcodone-ACET 5/325MG TAB PO PRN (06:14)
--- NOTE | 2019-03-16 08:00 | NUR ---
RECEIVED PATENT ALERT AND ORIENTED X2, NOT IN DISTRESS, DENIED SORT OF BREATH AND CHEST PAIN, RR=18, DEEP BREATHING ENCOURAGED, VERBALIZED UNDERSTANDING, ABDOMEN SOFT WITH ACTIVE BOWEL SOUNDS, LAST BM=THIS MORNING REPORTED, GARCIA CATH IN PLACE AND PATENT, DRAINING CLEAR LIGHT YELLOW URINE, SKIN INTACT WARM TO TOUCH, KEEP CLEAN AND DRY, POSITION CHANGED, RESTING ON BED, HEAD OF BED ELEVATED, BED ON LOW POSITION, RAILS UP X2, CALL LIGHT ON REACH, SITTER AT BED SIDE, WILL CONTINUE MONITORING.
--- NOTE | 2019-03-16 08:30 | NUR ---
REFUSED TO EAT BREAKFAST, NOT IN DISTRESS, DENIED PAIN, RESTING ON BED.
[2019-03-16 09:00] VITALS: BP 137/69
[2019-03-16] MEDS: LEXAPRO 20 MG PO SCH (10:00)
[2019-03-16] MEDS: ERTAPENEM SOD INJ 1 GM in SODIUM CHL 0.9% 50 ML IV SCH (10:25)
[2019-03-16] MEDS: TRIAMTERENE/HCTZ 37.5/25 MG CAP/TAB PO SCH (10:26)
[2019-03-16] MEDS: CLOPIDOGREL BISULFATE 75 MG TAB PO SCH (10:26)
[2019-03-16] MEDS: FAMOTIDINE 20 MG TAB PO SCH (10:26)
[2019-03-16] MEDS: ATENOLOL 25 MG TAB PO SCH ×2 (10:27→21:39)
--- NOTE | 2019-03-16 11:17 | NUR ---
NUTRITION ASSESSMENT NOTES Please refer to link notes of nutrition screen form filed under the intervention section of the plan of care for further details. Est. Needs: 1700 kcal to 2050 kcal (25-30 kcal/kgBW), 54 gms to 68 gms pro (0.8-1.0 gms/kgBW). Will continue to monitor pertinent labs and reassess nutrient need prn Thank you. Addendum: 03/16/19 at [address] Amended: Links added.
[2019-03-16 13:00] VITALS: BP 140/60
--- NOTE | 2019-03-16 13:00 | NUR ---
PARTIAL BED BATH AND LENEN CHANGE PROVIDED, COOPERATED AND TOLERATED WELL, AT BED SIDE.
[2019-03-16 17:16] VITALS: BP 124/60
--- NOTE | 2019-03-16 19:28 | NUR ---
NOT IN DISTRESS, DENIED PAIN, RESTING ON BED, REPORT WAS GIVEN TO GLASS BULB MACHINE ADJUSTER RN.
--- NOTE | 2019-03-16 19:30 | NUR ---
OPENING NOTE REPORT RECEIVED FROM DAY SHIFT RN PATIENT IS RESTING COMFORTABLY IN BED, A/OX2 AT THIS TIME. GARCIA DRAINING TO GRAVITY, URINE IS CLEAR YELLOW. IV NOTED TO RIGHT FOREARM 22G INFUSING NS ORDERED. SITTER AT BEDSIDE FOR PATIENT SAFETY. FALL AND SEIZURE PRECAUTIONS IN PLACE. CALL LIGHT WITHIN REACH.
[2019-03-16] MEDS: ATORVASTATIN 20 MG TAB PO SCH (21:39)
[2019-03-16] MEDS: PHENYTOIN SODIUM 100 MG CAP PO SCH (21:40)
[2019-03-16 22:00] VITALS: BP 148/53
[2019-03-16 22:39] VITALS: BP 126/50
[2019-03-17] MEDS: SODIUM CHLORIDE 0.9% 1,000 ML IV SCH ×3 (00:58→17:00)
[2019-03-17 04:41] VITALS: BP 136/51
--- NOTE | 2019-03-17 06:57 | NUR ---
CLOSING PATIENT IS RESTING IN BED, SITTER AT BEDSIDE FOR SAFETY, CALL LIGHT WITHIN REACH. WILL ENDORSE CARE TO DAY SHIFT RN
[2019-03-17 09:00] VITALS: BP 132/58
[2019-03-17] MEDS ORDERED: cefTRIAXone 1GM/50ML D5W 50 ML IV SCH (09:00)
[2019-03-17] MEDS: TRIAMTERENE/HCTZ 37.5/25 MG CAP/TAB PO SCH (09:58)
[2019-03-17] MEDS: LEXAPRO 20 MG PO SCH (09:58)
[2019-03-17] MEDS: FAMOTIDINE 20 MG TAB PO SCH (09:59)
[2019-03-17] MEDS: ATENOLOL 25 MG TAB PO SCH (09:59)
[2019-03-17] MEDS: CLOPIDOGREL BISULFATE 75 MG TAB PO SCH (09:59)
[2019-03-17 13:00] VITALS: BP 131/61
[2019-03-17 14:16] VITALS: BP 132/68
--- NOTE | 2019-03-17 14:38 | NUR ---
assessment Patient is a 79 year old female who is confused. Per patients Gus who is at bedside. Per Gus patient lived home with him prior to admission and functioned with his assistance. Per Gus patient is on service with [facility] and wants to resume with [facility] on discharge. Patients PCP is Dr Mosley. Patient has an advanced directive and Gus is POA. Per Gus patient has no post discharge needs except the resumption order. Per Gus they are doing well at home. Gus verbalized understanding and agreed to discharge plan home. Addendum: 03/17/19 at 1452 by Lelo DEJESUS Amended: Links added.
--- NOTE | 2019-03-17 15:02 | NUR ---
Stave Log Cut Off Saw Operator consult regarding resuming Home Health . Pt was previously on service with [facility] and will be resuming with this service upon discharge. [facility] contacted and information faxed to [facility] information received and services to resume upon discharge. Will notify covering nurse and KINGSLEY II of the above.
--- NOTE | 2019-03-17 15:16 | NUR ---
PENDING D/C HOME WITH HOME HEALTH, PENDING SS CONSULT, OLEG Singer WAS CONTACTED FOR FOLLOW UP AND NOTIFIED, WILL CONTINUE MONITORING.
--- NOTE | 2019-03-17 16:18 | NUR ---
D/C GARCIA CATH ORDERED, TOLERATED WELL, ABLE TO VOID X1, HOME HEALTH ARRANGEMENT WAS DONE BY SS REPORTED, RESTING ON BED, WAITING FOR FOR RIDE, WILL CONTINUE MONITORING.
[2019-03-17] MEDS: HYDROcodone-ACET 5/325MG TAB PO PRN (16:56)
[2019-03-17 17:00] VITALS: BP 168/77
--- NOTE | 2019-03-17 17:55 | NUR ---
D/C INSTRUCTIONS PROVIDED, FOLLOW UP APPOINTMENT WITH WAS ARRANGED AND INFORMATION PROVIDED, VERBALIZED UNDERSTANDING, D/C IV SITE, TOLERATED WELL, VS T=98.5 RR=18, SAT=96%, P=68, FX=704/65, NOT IN DISTRESS, DENIED PAIN, D/C HOME ON WC ACCOMPANIED BY , TOOK ALL BELONGINGS AND LEFT NOTHING BEHIND.
== END 2019-03-17 17:50 | disposition home health service (06) | DRG 871 ==
LOC: EDBD 09:43 → ER 09:51 → OVERFLOW 09:52 → CENTRAL 16:20
PROVIDERS: ADMIT Nurse Practitioner Acute Care; ATTEND Internal Medicine Cardiovascular Disease
DX: A41.9 Sepsis, unspecified organism (principal); G93.41 Metabolic encephalopathy; I69.359 Hemiplegia and hemiparesis following cerebral infarction affecting unspecified side; N30.01 Acute cystitis with hematuria; N18.3 Chronic kidney disease, stage 3 (moderate); F03.90 Unspecified dementia, unspecified severity, without behavioral disturbance, psychotic disturbance, mood disturbance, and anxiety; M19.90 Unspecified osteoarthritis, unspecified site; G40.909 Epilepsy, unspecified, not intractable, without status epilepticus; E78.5 Hyperlipidemia, unspecified; M54.5 Low back pain; I12.9 Hypertensive chronic kidney disease with stage 1 through stage 4 chronic kidney disease, or unspecified chronic kidney disease; Z79.899 Other long term (current) drug therapy; Z88.0 Allergy status to penicillin; Z91.018 Allergy to other foods; Z82.49 Family history of ischemic heart disease and other diseases of the circulatory system; Z90.710 Acquired absence of both cervix and uterus
CPT/HCPCS: 36415; 70450; 71045; 80048; 80053; 80185; 81001; 83880; 84484; 85025; 85610; 85730; 87081; 87086; 93005; 96361; 96365; 96367; G0378; J0696; J1335

== ENCOUNTER → 2019-04-10 | Outpatient (CLI) | payer MEDICARE, BC ==
[~2019-04-10] MED LIST changes: +PHE100C PO; -PHEN50CH4 PO
[2019-04-10 16:02] LABS: Urine Blood TRACE /uL (Negative); Urine Specific Gravity 1.018 (1.001-1.035)
== END | disposition home or self-care (01) ==
LOC: LAB 12:54
PROVIDERS: ATTEND Internal Medicine Cardiovascular Disease
DX: R94.4 Abnormal results of kidney function studies (principal); N39.0 Urinary tract infection, site not specified
CPT/HCPCS: 36415; 81003; 82565; 87086

== ENCOUNTER → 2019-04-12 | Outpatient (CLI) | payer MEDICARE, BC | END | disposition home or self-care (01) | LOC: Rad HDHVI 10:02 | PROVIDERS: ATTEND Internal Medicine Cardiovascular Disease | DX: M16.11 Unilateral primary osteoarthritis, right hip (principal); M25.451 Effusion, right hip; M48.07 Spinal stenosis, lumbosacral region; M47.816 Spondylosis without myelopathy or radiculopathy, lumbar region; M25.78 Osteophyte, vertebrae | CPT/HCPCS: 72131; 73700 ==

== ENCOUNTER 2019-09-16 11:35 | Emergency (ER) | payer MEDICARE, BC ==
[~2019-09-16] VITALS: Ht 162.6 cm; Wt 63.5 kg
[2019-09-16 13:21] VITALS: BP 108/47
[2019-09-16] MEDS ORDERED: ACETAMINOPHEN 325 MG TAB PO ONE (13:30)
== END 2019-09-16 14:23 | disposition home or self-care (01) ==
LOC: ER 11:35
DX: S42.202A Unspecified fracture of upper end of left humerus, initial encounter for closed fracture (principal); W18.39XA Other fall on same level, initial encounter; Y93.89 Activity, other specified; Y92.89 Other specified places as the place of occurrence of the external cause; Y99.8 Other external cause status
CPT/HCPCS: 29105; 73030; 73060

== ENCOUNTER → 2019-09-27 | Outpatient (CLI) | payer MEDICARE, BC ==
[2019-09-27 11:35] LABS: Urine Blood Negative /uL (Negative); Urine Specific Gravity 1.016 (1.001-1.035)
== END | disposition home or self-care (01) ==
LOC: LAB 11:17
PROVIDERS: ATTEND Internal Medicine Cardiovascular Disease
DX: N39.0 Urinary tract infection, site not specified (principal)
CPT/HCPCS: 81003

== ENCOUNTER 2020-01-14 17:18 | Inpatient (IN) | payer MEDICARE, BC ==
[~2020-01-14] VITALS: Ht 152.4 cm; Wt 66.5 kg
[2020-01-14 18:22] LABS: Basophils # (auto) 0.1 10 ^3/uL (0-0.2); Basophils % (auto) 0.8 % (0.0-2.0); Eosinophils # (auto) 0.1 10 ^3/uL (0-0.8); Eosinophils % (auto) 1.1 % (0.0-7.0); Hematocrit 47.7 % (36.0-46.0); Hemoglobin 16.2 g/dL (12.2-16.2); Lymphocytes # (auto) 3.2 10 ^3/uL (0.4-5.4); Lymphocytes % (auto) 30.7 % (10.0-50.0); Mean Corpuscular Hemoglobin 31.9 pg (28.0-32.0); Mean Corpuscular Hgb Conc. 33.9 g/dL (32.0-36.0); Mean Corpuscular Volume 94.1 fL (80.0-100.0); Monocytes % (auto) 9.9 % (0.0-12.0); Neutrophils % (auto) 57.5 % (37.0-80.0); Nucleated Red Blood Cells % 0.2 %; Platelet Count (auto) 323 10^3/uL (140-450); Red Blood Cells 5.07 10^6/uL (4.0-5.20); Red Cell Distribution Width 13.6 % (11.8-14.3); White Blood Cell 10.5 10^3/uL (4.4-10.8)
[2020-01-14 18:42] LABS: Albumin 3.6 g/dL (3.4-5.0); Anion Gap 8 (5-15); Carbon Dioxide 28 mmol/L (21-32); Chloride 102 mmol/L (98-107); Glucose 104 mg/dL (74-106); Magnesium 2.2 mg/dL (1.6-2.6); Potassium 3.1 mmol/L (3.5-5.1); Sodium 138 mmol/L (136-145)
[2020-01-14 18:49] LABS: Alanine Aminotransferase 23 U/L (13-56); Alkaline Phosphatase 139 U/L (45-117); Aspartate Aminotransferase 19 U/L (15-37); Bilirubin, Total 0.2 mg/dL (0.2-1.0); Blood Urea Nitrogen 17 mg/dL (7-18); GFR African American 64 mL/min; GFR Non-African American 53 mL/min; Total Protein 8.4 g/dL (6.4-8.2)
[2020-01-14 20:31] LABS: INR 0.98 (0.9-1.15); Partial Thromboplastin Time 25.7 sec (23.0-31.2)
[2020-01-14 21:41] LABS: Urine Bacteria FEW /hpf (None Seen); Urine Blood TRACE /uL (Negative); Urine Hyaline Cast FEW /lpf (0 - 2); Urine Specific Gravity 1.015 (1.001-1.035); Urine WBC 6 /hpf (0 - 5)
[2020-01-15] MEDS ORDERED: ACETAMINOPHEN 325 MG TAB PO PRN (00:30)
[2020-01-15] MEDS ORDERED: MORPHINE SULF INJ 2 MG/ML SYRINGE 1ML IV PRN (00:30)
[2020-01-15] MEDS ORDERED: ONDANSETRON HCL 4 MG/2 ML VIAL IV PRN (00:30)
[2020-01-15] MEDS ORDERED: NITROGLYCERIN 0.4 MG SL TAB SL PRN (00:30)
[2020-01-15 03:35] VITALS: BP 113/45
[2020-01-15 09:21] VITALS: BP 114/50
[2020-01-15] MEDS: FAMOTIDINE 20 MG TAB PO SCH ×2 (09:30→21:14)
[2020-01-15] MEDS: POTASSIUM CHL 20MEQ/100ML 100 ML IV SCH ×2 (09:30→11:14)
[2020-01-15] MEDS: ENOXAPARIN SOD 40 MG/0.4 ML SYRINGE SC SCH (09:30)
[2020-01-15] MEDS: ASPirin 81 mg TAB PO SCH (09:30)
[2020-01-15] MEDS: CLOPIDOGREL BISULFATE 75 MG TAB PO SCH (09:30)
[2020-01-15] MEDS: TRIAMTERENE/HCTZ 75/50MG TABLET PO SCH (09:31)
[2020-01-15 16:52] VITALS: BP 127/58
[2020-01-15] MEDS: PHENYTOIN SODIUM 100 MG CAP PO SCH (21:13)
[2020-01-15] MEDS: ATORVASTATIN 20 MG TAB PO SCH (21:14)
[2020-01-15 22:03] VITALS: BP 141/59
[2020-01-16 05:05] VITALS: BP 135/57
[2020-01-16 07:32] LABS: BUN/Creatinine Ratio 21.9; Calcium 8.9 mg/dL (8.5-10.1); Potassium 3.4 mmol/L (3.5-5.1)
[2020-01-16 07:37] LABS: Basophils # (auto) 0 10 ^3/uL (0-0.2); Basophils % (auto) 0.4 % (0.0-2.0); Eosinophils # (auto) 0.1 10 ^3/uL (0-0.8); Eosinophils % (auto) 1.2 % (0.0-7.0); Hematocrit 47.5 % (36.0-46.0); Lymphocytes # (auto) 2.8 10 ^3/uL (0.4-5.4); Lymphocytes % (auto) 24.6 % (10.0-50.0); Mean Corpuscular Hemoglobin 31.4 pg (28.0-32.0); Mean Corpuscular Hgb Conc. 33.7 g/dL (32.0-36.0); Mean Corpuscular Volume 93.3 fL (80.0-100.0); Monocytes # (auto) 1.3 10 ^3/uL (0-1.3); Monocytes % (auto) 11.2 % (0.0-12.0); Neutrophils # (auto) 7.1 10 ^3/uL (1.6-8.6); Neutrophils % (auto) 62.6 % (37.0-80.0); Nucleated Red Blood Cells % 0.1 %; Platelet Count (auto) 243 10^3/uL (140-450); Red Blood Cells 5.09 10^6/uL (4.0-5.20); Red Cell Distribution Width 13.7 % (11.8-14.3); White Blood Cell 11.3 10^3/uL (4.4-10.8)
[2020-01-16 09:00] VITALS: BP 122/69
[2020-01-16] MEDS: ASPirin 81 mg TAB PO SCH (11:54)
[2020-01-16] MEDS: FAMOTIDINE 20 MG TAB PO SCH ×2 (11:55→23:24)
[2020-01-16] MEDS: CLOPIDOGREL BISULFATE 75 MG TAB PO SCH (11:55)
[2020-01-16] MEDS: ENOXAPARIN SOD 40 MG/0.4 ML SYRINGE SC SCH (11:55)
[2020-01-16] MEDS: TRIAMTERENE/HCTZ 75/50MG TABLET PO SCH (11:55)
[2020-01-16 12:03] VITALS: BP 108/52
[2020-01-16 16:24] VITALS: BP 118/67
[2020-01-16 20:26] VITALS: BP 112/50
[2020-01-16] MEDS: PHENYTOIN SODIUM 100 MG CAP PO SCH (23:23)
[2020-01-16] MEDS: ATORVASTATIN 20 MG TAB PO SCH (23:23)
[2020-01-16] MEDS: DOXYCYCLINE 100 MG TAB/CAP PO SCH (23:24)
[2020-01-17 05:47] VITALS: BP 121/62
[2020-01-17 09:00] VITALS: BP 117/72
[2020-01-17] MEDS: CLOPIDOGREL BISULFATE 75 MG TAB PO SCH (10:27)
[2020-01-17] MEDS: ASPirin 81 mg TAB PO SCH (10:27)
[2020-01-17] MEDS: TRIAMTERENE/HCTZ 75/50MG TABLET PO SCH (10:27)
[2020-01-17] MEDS: FAMOTIDINE 20 MG TAB PO SCH (10:27)
[2020-01-17] MEDS: ENOXAPARIN SOD 40 MG/0.4 ML SYRINGE SC SCH (10:28)
[2020-01-17] MEDS: DOXYCYCLINE 100 MG TAB/CAP PO SCH (10:28)
[2020-01-17 12:58] VITALS: BP 121/70
[2020-01-17 17:00] VITALS: BP 108/60
[2020-01-17 20:34] VITALS: BP 117/72
[2020-01-17 20:49] VITALS: BP 132/62
== END 2020-01-17 21:05 | DRG 640 ==
LOC: ER 17:20 → TELE 17:21 → TELE-WESTW 01-15 03:19
PROVIDERS: ADMIT Nurse Practitioner; ATTEND Internal Medicine Cardiovascular Disease
DX: E87.6 Hypokalemia (principal); G93.41 Metabolic encephalopathy; G45.9 Transient cerebral ischemic attack, unspecified; I69.359 Hemiplegia and hemiparesis following cerebral infarction affecting unspecified side; R56.9 Unspecified convulsions; F03.90 Unspecified dementia, unspecified severity, without behavioral disturbance, psychotic disturbance, mood disturbance, and anxiety; I10 Essential (primary) hypertension; Z82.49 Family history of ischemic heart disease and other diseases of the circulatory system; Z87.440 Personal history of urinary (tract) infections; Z90.710 Acquired absence of both cervix and uterus; Z88.0 Allergy status to penicillin; Z20.828 Contact with and (suspected) exposure to other viral communicable diseases
CPT/HCPCS: 36415; 70450; 70551; 71045; 80048; 80053; 81001; 82962; 83605; 83735; 83880; 84484; 85025; 85610; 85730; 87040; 87086; 87426; 93005; G0378; J3480